=== PATIENT | female | born 1975 | race Caucasian/White ===

== ENCOUNTER → 2016-11-08 | Outpatient (CLI) | payer BC, OTHER ==
--- NOTE | 2016-11-08 10:25 | REP ---
LEFT FOOT SERIES: Four views. HISTORY: Left foot pain. FINDINGS: Four views left foot show overall normal mineralization. There is no visible fracture or subluxation. A small os naviculare is seen incidentally. IMPRESSION: No fracture or other acute bony abnormality. Signed by Robby Florence MD 11/08/2016 06:33 P
== END | disposition home or self-care (01) ==
LOC: M LRY 09:49
PROVIDERS: ATTEND Physician Assistant
DX: M79.672 Pain in left foot (principal)